=== PATIENT | female | born 1995 | race Caucasian/White ===

== ENCOUNTER 2018-10-26 21:06 | Emergency (ER) | payer OTHER, MEDICAID ==
[~2018-10-26] VITALS: Ht 172.7 cm; Wt 59.0 kg
[~2018-10-26 21:06] MED LIST: AMOXICILLIN 50500 M1 PO; AMOXICILLIN 50500 MG PO; CLARITIN10 MG PO; KEFLEX500 MG PO; ONDANSETRON HCL4 M2 PO; TRINATE TABLET1 TAB PO
[2018-10-26] MEDS ORDERED: TOBRAMYCIN SULFA5 M1 OPHTHALMIC (21:22)
[2018-10-26 21:31] VITALS: BP 128/71
== END 2018-10-26 21:31 | disposition home or self-care (01) ==
LOC: M.ERS 21:06
DX: J06.9 Acute upper respiratory infection, unspecified (principal)